=== PATIENT | female | born 1995 | race Caucasian/White ===

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

== ENCOUNTER 2017-03-25 05:20 | Emergency (ER) | payer OTHER ==
[~2017-03-25] VITALS: Ht 157.5 cm; Wt 69.4 kg
[2017-03-25] MEDS ORDERED: LORA10CA PO (05:35)
[2017-03-25] MEDS ORDERED: MUCU400T8 PO (05:37)
[2017-03-25] MEDS ORDERED: AMOX875T PO (05:37)
[2017-03-25] MEDS ORDERED: MICO1SUP2 PV (08:07)
[2017-03-25] MEDS ORDERED: BENZ200C44 PO (08:07)
[2017-03-25 08:16] VITALS: BP 111/55
== END 2017-03-25 08:15 | disposition home or self-care (01) ==
LOC: M ED 06:33
DX: O99.513 Diseases of the respiratory system complicating pregnancy, third trimester (principal); J06.9 Acute upper respiratory infection, unspecified; H66.001 Acute suppurative otitis media without spontaneous rupture of ear drum, right ear; O22.13 Genital varices in pregnancy, third trimester; O99.333 Smoking (tobacco) complicating pregnancy, third trimester; Z3A.30 30 weeks gestation of pregnancy

== ENCOUNTER 2017-05-30 00:02 | Outpatient (CLI) | payer OTHER ==
[~2017-05-30] VITALS: Ht 157.5 cm; Wt 76.0 kg
[~2017-05-30 00:02] MED LIST: AMOX875T PO; BENZ200C53 PO; LORA10CA PO; MICO1SUP2 PV; MUCU400T8 PO
[2017-05-30 00:19] VITALS: BP 121/71
[2017-05-30 00:20] VITALS: BP 122/74
== END 2017-05-30 01:35 | disposition home or self-care (01) ==
LOC: M LDO 00:02
PROVIDERS: ATTEND Student in an Organized Health Care Education/Training Program
DX: O47.1 False labor at or after 37 completed weeks of gestation (principal); Z3A.40 40 weeks gestation of pregnancy

== ENCOUNTER 2017-06-03 20:22 | Inpatient (IN) | payer OTHER ==
[~2017-06-03] VITALS: Ht 157.5 cm; Wt 74.0 kg
[2017-06-03 20:41] VITALS: BP 127/65
[2017-06-03] MEDS ORDERED: LR 1,000 ML IV SCH (21:32)
[2017-06-03] MEDS ORDERED: OXYTOCIN DRIP 30 UNITS in APPROPRIATE DILUENT 1 EA IV SCH (21:45)
--- NOTE | 2017-06-03 21:45 | HPEPDOC ---
Obstetrical History & Physical General Date of Admission Jun 03, 2017 at 21:29 History of Present Illness 21 y/o at 40+4 who had a trickle of fluid this AM and has had had wet panties ever since. Nl FM. No VB. No reg ctx's. Chief Complaint: LOF, term Care Care: Good Care Dating Final EDC by: LMP, 1st trimester (US) (8 wk US) Antepartum Course Diagnos(e)s tobacco use in from 20/day, now 1/day only EIF on US Reflux-Zantac Past Medical History Past Obstetrical History : Past Obstetrical History: Primgravida Past Medical History Surgical History: Other (ear tubes) Family History Significant Family History: No pertinent family hx Social History Marital Status: Family situation: Spouse/partner home Psychosocial History: No pertinent psych hx * Smoker: current smoker Alcohol: Denies Drugs: denies Abuse Violence Screening Have you been hit/kicked/slapp: No Have you been sexually assault: No Imunizations Tdap status: current Influenza Status: current Allergies Coded Allergies: No Known Allergies (Unverified , 03/25/17) Medications Scheduled Miconazole Nitrate (Miconazole 3) 1 Ea Sup, 1 EA PV QHS Scheduled PRN Benzonatate (Benzonatate) 200 Mg Cap, 200 MG PO TID PRN for COUGH Miscellaneous Medications (Loratadine) 10 Mg Cap, 10 MG PO Amoxicillin (Amoxicillin) 875 Mg Tab, 875 MG PO Guaifenesin (Mucus Relief) 400 Mg Tab, 400 MG PO Physical Examination Physical Examination GENERAL: Alert and oriented times three. SSE with neg pool and neg vals FETUS: vertex (VTX) by sterile vaginal examination, Cx 1/60/-3/vtx well applied , BOW palpated. EXTREMITIES: No edema. No clonus. Vital Signs/I&O Vital Signs Date Time Temp Pulse Resp B/P (MAP) Pulse Ox O2 Delivery O2 Flow Rate FiO2 06/03/17 20:41 98.7 111 18 127/65 (85) Pertinent Laboratoy Data Blood Type: O+ RBC Antibody Screen: Negative HIV: Negative Hepatitis B: Negative Hepatitis C: Unknown Rapid Plasma Reagin: Nonreactive Rubella: Immune Varicella: Unknown (equivocal on serum) Chlamydia/Gonorrhea: Negative Group B Streptococcus: Negative Quad Screen Test: Declined Cystic Fibrosis: Negative Anatomy Ultrasound Ultrasound Date: Jan 16, 2017 Placenta Location: Posterior Normal Anatomy: No (ALL WNL except 2 EI foci) Placenta Previa: No Other Ultrasounds 7MAY rpt scan showed 2 persistent EI foci, 48%ile, O/W nl scan Vaginal Examination Dilation: 1cm Effacement: 60-70% Station: -2 Cervical Consistency: Medium Cervical Position: Middle Presentation: Cephalic presentation (EFW 3100 gm) Assessment Variability: Moderate Accelerations: Positive Decelerations: Late (x1) Tocometer Frequency: irregular Assessment/Plan Assessment G1 at 40+4 with no evid SROM, adeq pelvis for labor IOL with a late decel noted , not persistent. I rec IOL and they accept. Plan Admit and orient. Pipe Line Walker and consent. Diet: clrs Group B Streptococcus (GBS) negative Labs and intravenous (IV) per unit protocol. Counseled on Pitocin and induction of labor (IOL). Lactated Ringers (LR): 125/hr, blous per ASOP prior to epidural Anticipate normal spontaneous delivery () C-S as appropriate. UDS as used marijuana up until just before Sessions MD SESSIONS,ROSALIE Cole MD Jun 03, 2017 21:45
[2017-06-03 22:09] LABS: MEAN CORPUSCULAR HEMOGLOBIN 30.1 pg (27.0-33.0); MEAN CORPUSCULAR HGB CONC 34.1 g/dl (32.0-36.5); MEAN CORPUSCULAR VOLUME 88.3 fl (80.0-96.0); RED CELL DISTRIBUTION WIDTH 13.2 % (11.5-14.5); WHITE BLOOD COUNT 10.3 K/mm3 (4.0-10.0)
[2017-06-03 22:42] VITALS: BP 115/67
[2017-06-03 23:13] VITALS: BP 122/72
[2017-06-03 23:43] VITALS: BP 115/68
[2017-06-04] VITALS (38 sets, daily range): BP systolic 102–132; BP diastolic 55–80
[2017-06-04] MEDS ORDERED: NALBUPHINE HCL 10 MG/ML AMP (J2300) IV ONE (01:15)
[2017-06-04] MEDS ORDERED: NALBUPHINE HCL 10 MG/ML AMP (J2300) IM ONE (01:15)
[2017-06-04] MEDS ORDERED: PROMETHAZINE INJ 25 MG/ML VIAL (J2550) IV ONE (01:15)
[2017-06-04] MEDS ORDERED: PROMETHAZINE INJ 25 MG/ML VIAL (J2550) As Ordered ONE (01:28)
[2017-06-04] MEDS ORDERED: FENTANYL 2MCG/ML ROPIVACAINE 0.2% IN 0.9% NACL 200ML IVBAG As Ordered ONE (04:41)
--- NOTE | 2017-06-04 06:13 | IPNPDOC ---
Text Note Date of Service The patient was seen on 06/04/17. NOTE NST Cat 2, mod sharri and pos accels, isolated variables and early's only episodic however UDS is neg Pitocin at 6 mu/min SROM, clr, at 0442 Cx 5-6/75/-2 at 0545 per RN Doing well, active labor. SBAR to CEDRIC Ruffin at 0730 Sessions VS,Christine, I+O VS, Christine I+O Laboratory Tests 06/03/17 21:54 Red Blood Count 4.06, Mean Corpuscular Volume 88.3, Mean Corpuscular Hemoglobin 30.1, Mean Corpuscular Hemoglobin Concent 34.1, Red Cell Distribution Width 13.2 Vital Signs Date Time Temp Pulse Resp B/P (MAP) Pulse Ox O2 Delivery O2 Flow Rate FiO2 06/03/17 20:41 98.7 111 18 127/65 (85) SESSIONS,ROSALIE Cole MD Jun 04, 2017 06:13
[2017-06-04] MEDS ORDERED: NALOXONE INJ 0.4 MG/1 ML VIAL (J2310) IV PRN (06:15)
[2017-06-04] MEDS ORDERED: EPIDURAL/PCA KEYS XX PRN (06:15)
[2017-06-04] MEDS ORDERED: diphenhydrAMINE INJ 50MG/ML VIAL (J1200) IV PRN (06:15)
[2017-06-04] MEDS ORDERED: REFRIGERATOR IV KEYS XX PRN (06:15)
[2017-06-04] MEDS ORDERED: ONDANSETRON 4MG/2ML VIAL (J2405) IV PRN (06:15)
[2017-06-04] MEDS ORDERED: LACTATED RINGER'S 1000 ML IV PRN (06:15)
[2017-06-04] MEDS ORDERED: EPIDURAL COMMENT XX SCH (06:15)
[2017-06-04] MEDS ORDERED: FENTANYL/ROPIVACAINE/NACL BAG 200 ML EPIDURAL SCH (06:15)
[2017-06-04] MEDS ORDERED: ePHEDrine SULFATE 25 MG/5 ML(5MG/ML) SYRINGE IV PRN (06:15)
[2017-06-04] MEDS ORDERED: OXYTOCIN DRIP 30 UNITS in APPROPRIATE DILUENT 1 EA IV SCH (07:25)
[2017-06-04] MEDS ORDERED: RHOGAM 300 MCG (1500 IU) INJ (J2790) IM SCH (07:30)
[2017-06-04] MEDS ORDERED: MEASLES,MUMPS,RUBELLA VACCINE INJ (MMR-II) (90707) SC SCH (07:30)
[2017-06-04] MEDS ORDERED: METOCLOPRAMIDE INJ 10MG/2ML VIAL (J2765) IV PRN (07:30)
[2017-06-04] MEDS ORDERED: DIBUCAINE 1% OINTMENT 30GM TOP PRN (07:30)
--- NOTE | 2017-06-04 07:35 | DNPDOC ---
[facility] Delivery Note Delivery Note DATE OF DELIVERY: Jun 03, 2017 at 21:29 PREDELIVERY DIAGNOSIS: 40 4/7 weeks' gestation and labor. POST DELIVERY DIAGNOSIS: Delivered. PROCEDURE: Spontaneous vaginal delivery PROJECT SCHEDULER: ANESTHESIA: epidural ESTIMATED BLOOD LOSS: 300 FINDINGS: 6pound 12ounce female infant, Score 8/9, nuchal cord times 1 DELIVERY SUMMARY: Called to , , excellent effort. No delay of the vtx , single nuchal reduced. Restitution to ROT, no delay ant/post shoulder. Compound post/right arm. Vigorous to mother's abd. Cord C/C by FOB. Cord blood. Placenta intact with minimal traction and fundal massage. Pit going wide open, fundus firm. Inner longitudinal right lac lower edge bleeding , closed with a figure of eight, hemostasis noted. No external lacs. Manuel COLON,ROSALIE Cole MD Jun 04, 2017 07:35
[2017-06-04] MEDS: PRENATAL VITAMINS CHEWABLE TABLET PO SCH (09:00)
[2017-06-04] MEDS: DOCUSATE SODIUM 100 MG CAP PO SCH ×2 (09:00→21:00)
[2017-06-04] MEDS: IBUPROFEN 800 MG TAB PO PRN ×2 (13:42→22:44)
[2017-06-05 06:12] VITALS: BP 123/67
[2017-06-05] MEDS: IBUPROFEN 800 MG TAB PO PRN ×2 (06:36→17:16)
[2017-06-05] MEDS: DOCUSATE SODIUM 100 MG CAP PO SCH ×2 (07:59→21:00)
[2017-06-05] MEDS: PRENATAL VITAMINS CHEWABLE TABLET PO SCH (07:59)
[2017-06-05] MEDS: ACETAMINOPHEN TAB 650MG DOSE (2X325MG) PO PRN (12:05)
--- NOTE | 2017-06-05 12:31 | IPN ---
DATE: 06/05/2017 This lady is a 22-year-old 1 now para 1 admitted with spontaneous rupture of membranes at 40 and 4 weeks of gestation. She had a spontaneous vaginal delivery of a live female infant, 6 pounds 12 ounces, scores of 8 and 9 at 1 and 5 minutes, respectively with epidural. She had a laceration repaired, location is undisclosed. Her hemoglobin is 12.2, hematocrit 35.9 and platelets are 216. Vital signs today: Her blood pressure is 123/67, respirations 18, pulse 82, temperature 97.3. She is planning on discharge tomorrow morning with medications given and has a 6-week checkup with [facility]. The patient is well, happy, content. No issues. The rest of the examination is unremarkable. She is neuro complete. No vaginal bleeding or loss. Uterus 2 below. Lochia is moderate. Perineum is healing. No jugular venous distention (JVD), bruits. Lungs are clear bilaterally at the bases. No wheezes or rhonchi. The patient is actively moving, passing gas, voiding with no urgency, no frequency, no incontinence. No nausea, vomiting, diarrhea or constipation.
[2017-06-05 18:45] VITALS: BP 116/61
[2017-06-06] MEDS: ACETAMINOPHEN TAB 650MG DOSE (2X325MG) PO PRN ×2 (00:16→07:51)
[2017-06-06] MEDS: IBUPROFEN 800 MG TAB PO PRN ×2 (01:47→10:41)
[2017-06-06 06:31] VITALS: BP_SYST 115; BP_SYST 155; BP_DIAS 55
--- NOTE | 2017-06-06 07:13 | DS.PDOC ---
Discharge Summary General Date of Admission Jun 03, 2017 at 21:29 Date of Discharge [id number] Discharge Summary PROCEDURES PERFORMED DURING STAY: spontaneous vaginal delivery ADMITTING DIAGNOSIS: 1. Induction of labor due to a late on NST DISCHARGE DIAGNOSES: 1. Healthy female infant after successful induction HOSPITAL COURSE: Admitted for induction after a late noted on NST. Uncomplicated, see delivery note. DISCHARGE MEDICATIONS: Motrin, Tylenol, Colace, Lanolin, Dibucaine Physical exam: see note from this morning LABORATORY DATA: Please see below. ACTIVITY: as tolerated. Nothing in vagina for 6 weeks. DIET: regular DISPOSITION:stable TIME SPENT ON DISCHARGE: Greater than 15 minutes. Sessions Vital Signs/I&Os Vital Signs Date Time Temp Pulse Resp B/P (MAP) Pulse Ox O2 Delivery O2 Flow Rate FiO2 06/06/17 06:31 97.7 74 16 115/55 (75) 06/04/17 18:00 98 Discharge Medications Scheduled Miconazole Nitrate (Miconazole 3) 1 Ea Sup, 1 EA PV QHS Scheduled PRN Benzonatate (Benzonatate) 200 Mg Cap, 200 MG PO TID PRN for COUGH Miscellaneous Medications (Loratadine) 10 Mg Cap, 10 MG PO, (Reported) Amoxicillin (Amoxicillin) 875 Mg Tab, 875 MG PO, (Reported) Guaifenesin (Mucus Relief) 400 Mg Tab, 400 MG PO, (Reported) Allergies Coded Allergies: No Known Allergies (Unverified , 03/25/17) SESSIONS,ROSALIE Cole MD Jun 06, 2017 07:13
[2017-06-06] MEDS ORDERED: medroxyPROGESTERone ACET IM SUSP 150 MG/ML VIAL (J1050) IM ONE (07:15)
--- NOTE | 2017-06-06 07:15 | IPNPDOC ---
Text Note Date of Service The patient was seen on 06/06/17. NOTE PPD2 prog note States feeling well, no complaints. No heavy VB. Pain controlled. Voiding, ambulatory. Bonding well and bottle feeding well. VSSAF CTAB RRR Ut at U-1, firm Ext no CCE a/p: Doing well. d/c this morning. To bonding if baby not released. Depo this AM. Sessions VS,Christine, I+O VSChristine I+O Vital Signs Date Time Temp Pulse Resp B/P (MAP) Pulse Ox O2 Delivery O2 Flow Rate FiO2 06/06/17 06:31 97.7 74 16 115/55 (75) 06/04/17 18:00 98 SESSIONS,ROSALIE Cole MD Jun 06, 2017 07:15
[2017-06-06] MEDS: PRENATAL VITAMINS CHEWABLE TABLET PO SCH (07:51)
[2017-06-06] MEDS: DOCUSATE SODIUM 100 MG CAP PO SCH (09:00)
[2017-06-06] MEDS ORDERED: PREN29TA4 PO (12:46)
[2017-06-06] MEDS ORDERED: ACET50TA PO (12:46)
[2017-06-06] MEDS ORDERED: COLA100C5 PO (12:46)
[2017-06-06] MEDS ORDERED: DIBU1OIN TOP (12:46)
[2017-06-06] MEDS ORDERED: IBUP-1114 PO (12:46)
== END 2017-06-06 13:20 | disposition home or self-care (01) | DRG 775 ==
LOC: M LDO 20:22 → M LDI 21:29 → M OBS 06-04 10:16
PROVIDERS: ADMIT Obstetrics & Gynecology; ATTEND Obstetrics & Gynecology
PROC: 10E0XZZ Delivery of Products of Conception, External Approach (ICD-10-PCS; principal; 2017-06-03)
PROC: 0HQ9XZZ Repair Perineum Skin, External Approach (ICD-10-PCS; 2017-06-03)
PROC: 3E033VJ Introduction of Other Hormone into Peripheral Vein, Percutaneous Approach (ICD-10-PCS; 2017-06-03)
DX: O76 Abnormality in fetal heart rate and rhythm complicating labor and delivery (principal); O99.334 Smoking (tobacco) complicating childbirth; Z3A.40 40 weeks gestation of pregnancy; F17.210 Nicotine dependence, cigarettes, uncomplicated; O69.82X0 Labor and delivery complicated by other cord entanglement, without compression, not applicable or unspecified; O32.6XX0 Maternal care for compound presentation, not applicable or unspecified; O70.0 First degree perineal laceration during delivery; O48.0 Post-term pregnancy; Z37.0 Single live birth